=== PATIENT | female | born 1985 | race Caucasian/White ===

== ENCOUNTER 2024-05-07 17:46 | Emergency (ER) | payer OTHER, SELFPAY ==
[2024-05-07 17:52] VITALS: BP 135/83
[2024-05-07 18:10] LABS: % Basophils 0.6 % (0-2); % Eosinophils 0.9 % (0-6); % Immature Granulocytes 0.3 % (0-0.5); % Lymphocytes 29.8 % (20.5-51.1); % Neutrophils 63.4 % (42.2-75.2); Absolute Basophils 0.1 10^3/uL (0-0.2); Absolute Eosinophils 0.1 10^3/uL (0-0.7); Absolute Lymphocytes 3.7 10^3/uL (1.2-3.4); Absolute Monocytes 0.6 10^3/uL (0.1-0.6); Absolute Neutrophils 7.9 10^3/uL (1.4-6.5); Hemoglobin 14.7 g/dL (12.0-16.0); Mean Corp Hgb Conc. 35.9 g/dL (33.0-37.0); Mean Corpuscular Hgb 30.6 pg (27.0-31.0); Mean Corpuscular Volume 85.4 fL (81.0-99.0); Mean Platelet Volume 9.4 fL (7.4-10.4); Nucleated Red Blood Cells % 0 %; Platelet Count 243 10^3/uL (130-400); Red Cell Dist. Width 13.1 % (11.5-14.5); White Blood Cell Count 12.5 10^3/uL (4.8-10.8)
[2024-05-07 18:22] LABS: Alcohol None Detected; Blood Urea Nitrogen 9 mg/dl (7-17); Calcium 9.6 mg/dl (8.4-10.2); Carbon Dioxide 23 mmol/L (22-30); Chloride 105 mmol/L (98-107); Glucose 120 mg/dl (70-99); Potassium 3.8 mmol/L (3.5-5.1); Sodium 137 mmol/L (135-145); eGFR > 60.00
[2024-05-07 19:56] LABS: AST (SGOT) 36 U/L (14-36); Acetaminophen < 10 ug/ml (10-30); Albumin 4.5 g/dl (3.5-5.0); Alkaline Phosphatase 97 U/L (38-126); Direct Bilirubin 0.4 mg/dl (0.0-0.4); Salicylate < 1.0 mg/dl (2.0-20.0); Total Bilirubin 1.5 mg/dl (0.2-1.3); Total Protein 7.2 g/dl (6.3-8.2)
[2024-05-07 20:08] LABS: ALT (SGPT) 46 U/L (0-35)
--- NOTE | 2024-05-07 21:52 | ED.GENMED ---
History of Present Illness
General
Chief Complaint: Crisis Evaluation
Source: patient
Exam Limitations: none
Time Seen by Provider: 05/07/24 18:06
Nursing documentation reviewed up to this point in time: agreed with
History of Present Illness
History of Present Illness:
38-year-old female with past medical history as documented presents to the emergency room on a 302�presented to crisis and reportedly having suicidal ideation and not caring for herself. Patient has no physical complaints. She does admit to
hallucinations. She does admit to being suicidal apparently patient today locked herself in the bathroom with a knife although she denies actually injuring herself. When asked about a plan she is very quiet and does not answer. She vaguely
endorses drug and alcohol use but is very nonspecific about what she uses, how often or when her last dose was.
Past History
Past History
ED Past Medical History: Psychiatric and Other
ED Past Surgical History: Other (Unknown)
Social History
Tobacco: Smoker
Alcohol: None
Drug: None
Personal: Single
Living: with family
Employment: Not employed
Family History
Family History: Other (Noncontributory)
Review of Systems
Review of Systems
All Other Systems: ROS reviewed and negative except as documented in HPI and ROS
Constitutional: Denies fever
Respiratory: Denies trouble breathing
Cardiac: Denies chest pain
ABD/GI: Denies abdominal pain
: Denies flank pain
Musculoskeletal: Denies neck pain or back pain
Neurological: Denies headache
Psychiatric: Reports suicidal and hallucinations
Phy Exam
Physical Exam
Physical Exam:
General: Awake, alert, oriented x3; disheveled; appears to be responding to internal stimuli
Head: Normocephalic, atraumatic
Eyes: Conjunctiva normal, EOMI, pupils equal round reactive to light bilaterally
Throat: Airway intact, handling secretions
Neck: Trachea midline, supple without meningismus
Lungs: Clear to auscultation bilaterally, no wheezing, rales, rhonchi
Heart: Regular rate and rhythm, no murmurs, gallops, or rubs
Abd: Soft, non distended, nontender
Neuro: Cranial nerves grossly intact, speech fluid, moving all extremities with no gross motor or sensory deficits
Skin: no rash, no lacerations or signs of trauma
Extremities: No edema in extremities, equal pulses in all extremities
Scores
Heart Failure Risk
Heart Failure Risk Score: Not Applicable
Heart Score for Chest Pain Patients
STEMI patient?: Not applicable
Withdrawal Assessment of Alcohol
Withdrawal Assessment Completed?: Not applicable
Course
Orders/Labs/Results
Orders:
Orders
05/07/24 17:59
Acetaminophen Urgent
Comment: ADD ON
Alcohol Urgent
Basic Metabolic Panel Urgent
Complete Blood Count/With Diff Urgent
Ptvst-Qoma-Mrqmjke Urgent
Comment: ADD ON
Salicylate Urgent
Comment: ADD ON
Urine Drug Abuse Screen Urgent
Date Specimen was Collected: 05/07/24
Time Specimen was Collected: 17:58
05/07/24 19:02
Add On- LAB Urgent
Tests Added?: salycilate, acetaminophen, liver chem profile
Abnormal Lab Results
05/07/24
17:59
WBC 12.5 H 10^3/uL
(4.8-10.8)
Absolute Neuts (auto) 7.9 H 10^3/uL
(1.4-6.5)
Absolute Lymphs (auto) 3.7 H 10^3/uL
(1.2-3.4)
Glucose 120 H mg/dl
(70-99)
Total Bilirubin 1.5 H mg/dl
(0.2-1.3)
ALT 46 H U/L
(0-35)
Salicylates < 1.0 L mg/dl
(2.0-20.0)
Acetaminophen < 10 L ug/ml
(10-30)
05/07/24 17:59
05/07/24 17:59
Vital Signs
Initial and Last Documented VS:
Initial Vital Signs
Temp Pulse Resp BP Pulse Ox
36.6 C 90 18 135/83 95
05/07/24 17:52 05/07/24 17:52 05/07/24 17:52 05/07/24 17:52 05/07/24 17:52
Last Documented Vital Signs
Temp Pulse Resp BP Pulse Ox
36.6 C 90 18 135/83 95
05/07/24 17:52 05/07/24 17:52 05/07/24 17:52 05/07/24 17:52 05/07/24 17:52
MDM/Problems Addressed
Differential Diagnosis Includes:
Psychosis, drug use, alcohol use
MDM/Problems Addressed:
38-year-old female brought in on a 302 for hallucinations and suicidal ideation. No physical complaints. She does report a plan but is very vague�apparently there was an incident where she locked herself in the bathroom with a knife today. No
apparent injuries. Vital signs are normal. Exam as above. Will check basic screening labs. Will check tox screen. Discussed case with crisis, telepsych evaluation pending.
Labs reviewed: CBC shows marginal leukocytosis of unclear clinical significance, CMP no clinically significant abnormalities. Alcohol negative. Tylenol and salicylate levels are negative. At this point patient medically cleared for psychiatric
placement.
Patient evaluated by telepsychiatry and. She was upheld. Will continue monitor pending inpatient psychiatric placement.
Patient becoming agitated, will dose with p.o. meds for agitation.
*Pulse Oximetry
Patient hypoxic: no
*Critical Care Note
Total Time (30-74mins, 75-104mins- exclusive of procedures): Not Applicable
Data Reviewed
Source: patient
Patient Management
Discussion with other providers: Other (Discussed with crisis)
Escalation/DeEscalation of care consider admission/obs:
Admission indicated�inpatient psych
ED Attending Note
-
Portions of this chart may have been created with voice recognition software.� Occasional wrong word or��sound alike� substitutions may have occurred due to the inherent limitations of voice recognition software.
Discharge Plan
Departure
Patient Disposition: Psych Facility
Date of Disposition: 05/07/24
Time of Disposition: 20:42
Discharge Problem:
Psychosis, Suicidal ideation
Prescriptions:
No Action
benztropine 1 mg Tablet
1 mg PO DAILY
Rx Instructions:
Take for EPS symptoms for 15 days, unknown when started
risperidone 1 mg Tablet
1 mg PO BID
Referrals:
UNKNOWN - PT NOT,INTERVIEWE [Family Provider] -
Interventions
Interventions:
*Risk Screen - Suicide Last Done: 05/07/24 17:52
*General Assessment Last Done: 05/07/24 17:52
*Neglect/Abuse Screening Last Done: 05/07/24 17:52
ED-Psychological Assessment Last Done: 05/07/24 18:10
Discharge Date and Time
Print Language: HEBREW
[2024-05-07] MEDS: SAPHRIS 10 MG SL (22:11)
[2024-05-08 03:11] LABS: Urine Albumin Negative (Neg - Trace); Urine Bilirubin Negative (Negative); Urine Character Slightly Cloudy (Clear); Urine Color Yellow; Urine Glucose Negative (Negative); Urine Ketone Trace (Negative); Urine Leukocyte Trace (Negative); Urine Nitrite Negative (Negative); Urine Occult Blood Negative (Negative); Urine Specific Gravity 1.025 (<1.030); Urine Urobilinogen Negative (Neg - 1+)
[2024-05-08 03:19] LABS: HCG, Urine Qualitative Screen Negative
[2024-05-08 03:59] LABS: Amphetamines Negative (Negative); Barbiturates Negative (Negative); Benzodiazepines Negative (Negative); Buprenorphine Negative (Negative); Cocaine Negative (Negative); Marijuana Negative (Negative); Methadone Negative (Negative); Methamphetamines Negative (Negative); Opiates Negative (Negative); Phencyclidine Negative (Negative); Tricyclic Antidepressants Negative (Negative)
[2024-05-08 05:27] LABS: Urine Mucus Few; Urine Squamous Cell >30 /LPF (Few)
[2024-05-08 05:28] LABS: Urine Bacteria Moderate (Negative)
[2024-05-08 08:41] VITALS: BP 132/79
[2024-05-08] MEDS: SAPHRIS 10 MG SL (09:19)
== END 2024-05-08 13:36 ==
LOC: EMR 17:46
PROVIDERS: EMERGENCY PHYSICIAN Emergency Medicine
DX: R45.851 Suicidal ideations (principal); F29 Unspecified psychosis not due to a substance or known physiological condition; R45.1 Restlessness and agitation; R44.3 Hallucinations, unspecified; F10.90 Alcohol use, unspecified, uncomplicated; F17.200 Nicotine dependence, unspecified, uncomplicated
CPT/HCPCS: 99285; 80048; 80076; 80143; 80179; 80306; 81003; 81015; 81025; 82077; 85025; 87086